=== PATIENT | male | born 1975 | race African-American/Black ===

== ENCOUNTER 2023-02-01 20:15 | Emergency (ER) | payer OTHER, SELFPAY ==
[2023-02-01 20:18] VITALS: BP 139/93; PULSE 74; RESP 16; TEMP 36.8; O2SAT 98
[2023-02-01 20:27] VITALS: PULSE 67
--- NOTE | 2023-02-01 20:39 | ECG_ITS ---
Measurements Intervals [place] Rate: 77 P: 65 AL: 165 QRS: 74 QRSD: 96 T: 77 QT: 389 QTc: 443 Interpretive Statements SINUS RHYTHM BORDERLINE T WAVE ABNORMALITY- ANTEROLAT/HIGH LAT LEADS BASELINE WANDER- I, II, III, AVL BORDERLINE ECG NO PREVIOUS ECG AVAILABLE FOR COMPARISON Electronically Signed On 02-02-2023 6:32:39 CDT by Lee Shelton D.O.
[2023-02-01 21:20] LABS: Basophils Percent Auto 0.4 % (0.2-1.2); Eosinophils Percent Auto 0.4 % (0-4.4); Hematocrit 43.1 % (42.0-52.0); Hemoglobin 13.8 g/dL (14.0-18.0); Immature Granulocyte Absolute 0.02 K/mm3 (0.00-0.031); Immature Granulocyte Percent A 0.4 % (0-0.5); Lymphocytes Absolute Auto 0.94 K/mm3 (0.9-3.2); Lymphocytes Percent Auto 16.9 % (18.3-44.2); Mean Corpuscular Hemoglobin 26.9 pg (26-34); Mean Platelet Volume 10.2 fl (7.4-10.4); Monocytes Absolute Auto 0.3 K/mm3 (0.1-0.6); Monocytes Percent Auto 6.1 % (2.6-8.5); Neutrophils Absolute Auto 4.2 K/mm3 (1.3-6.7); Neutrophils Percent Auto 75.8 % (45.5-73.1); Platelet Count Result 250 k/mm3 (150-375); Red Blood Count 5.13 M/mm3 (4.6-6.20); Red Cell Distribution Width 14.6 % (11.5-14.5); White Blood Count 5.6 K/mm3 (4.5-10.0)
--- NOTE | 2023-02-01 21:29 | ED.GENADULT ---
HPI - General Adult General Chief complaint: Seizure Stated complaint: seizure Time Seen by Provider: 02/01/23 20:47 History of Present Illness HPI narrative: Patient is a 47-year-old gentleman who presents the emergency department chief complaint of seizure. Patient reports he has prior history of seizure disorder and reports that he missed the doses of his medication today the patient states that he currently feels good and feels back to normal denies pain reports is no midline C-spine tenderness reports full range of motion in his neck patient states that he would like to go home and would like to call his girlfriend. Related Data Allergies Allergy/AdvReac Type Severity Reaction Status Date / Time No Known Allergies Allergy Verified 02/01/23 20:25 Review of Systems Review of Systems: A 10 system review of systems was completed on the patient and is negative except for what is stated in the HPI. Nursing and ancillary documentation was reviewed. PMFSH Comments Seizure disorder Exam Narrative: GENERAL: Well-appearing, well-nourished, and in no acute distress. HEAD: Normocephalic, atraumatic. EYES: PERRLA and EOMI. ENT: Nares clear, no rhinorrhea or epistaxis. Mucous membranes moist. NECK: Supple. No midline C-spine tenderness no pain with range of motion cleared by Nexus criteria CHEST: Clear to auscultation. No respiratory distress. HEART: Regular rate and rhythm. No murmur heard. Normal peripheral pulses. ABDOMEN: Soft, nontender, nondistended, normal active bowel sounds. EXTREMITIES: Normal range of motion. No edema. SKIN: Warm, dry, no rash. NEURO: No focal deficits. Alert and oriented x3. PSYCH: Normal mood and affect. Course Vital Signs Vital signs: Vital Signs Temperature 36.8 C 02/01/23 20:18 Pulse Rate 74 02/01/23 20:18 Respiratory Rate 16 02/01/23 20:18 Blood Pressure 139/93 H 02/01/23 20:18 Pulse Oximetry 98 02/01/23 20:18 Oxygen Delivery Room Air 02/01/23 20:18 Temperature 36.8 C 02/01/23 20:18 Pulse Rate 67 02/01/23 20:27 Respiratory Rate 16 02/01/23 20:18 Blood Pressure 139/93 H 02/01/23 20:18 Pulse Oximetry 98 02/01/23 20:18 Oxygen Delivery Room Air 02/01/23 20:18 Medical Decision Making MDM Narrative Medical decision making narrative: Differential diagnosis includes electrolyte abnormality, noncompliance, breakthrough seizure. We is unable to check Trileptal levels in the emergency department at this facility. The patient has had noncompliance with his medications patient was instructed to take his home medications when he gets home and the patient instructed to follow-up with his neurologist. Vital Signs Vital Signs: Vital Signs Temperature 36.8 C 02/01/23 20:18 Pulse Rate 74 02/01/23 20:18 Respiratory Rate 16 02/01/23 20:18 Blood Pressure 139/93 H 02/01/23 20:18 Pulse Oximetry 98 02/01/23 20:18 Oxygen Delivery Room Air 02/01/23 20:18 Temperature 36.8 C 02/01/23 20:18 Pulse Rate 67 02/01/23 20:27 Respiratory Rate 16 02/01/23 20:18 Blood Pressure 139/93 H 02/01/23 20:18 Pulse Oximetry 98 02/01/23 20:18 Oxygen Delivery Room Air 02/01/23 20:18 Lab Data 02/01/23 21:14 02/01/23 21:14 Labs: Lab Results 02/01/23 Range/Units 21:14 WBC 5.6 (4.5-10.0) K/mm3 RBC 5.13 (4.6-6.20) M/mm3 Hgb 13.8 L (14.0-18.0) g/dL Hct 43.1 (42.0-52.0) % MCV 84.0 (80-100) fl MCH 26.9 (26-34) pg MCHC 32.0 (32-36) g/dl RDW 14.6 H (11.5-14.5) % Plt Count 250 (150-375) k/mm3 MPV 10.2 (7.4-10.4) fl Immature Gran % (Auto) 0.4 (0-0.5) % Neut % (Auto) 75.8 H (45.5-73.1) % Lymph % (Auto) 16.9 L (18.3-44.2) % Noble % (Auto) 6.1 (2.6-8.5) % Eos % (Auto) 0.4 (0-4.4) % Baso % (Auto) 0.4 (0.2-1.2) % Lymph # (Auto) 0.94 (0.9-3.2) K/mm3 Noble # (Auto) 0.3 (0.1-0.6) K/mm3 Eos # (Auto) 0.0 (0-0.3) K/mm3 Baso # (Auto) 0.0 (0
[2023-02-01 21:33] LABS: Alanine Aminotransferase 20 U/L (6-50); Albumin Level 4.5 g/dL (3.5-5.1); Alkaline Phosphatase 72 U/L (38-126); Anion Gap 9 mmol/L (8-16); Aspartate Amino Transferase 25 U/L (17-59); Bilirubin,Total 0.5 mg/dL (0.2-1.3); Blood Urea Nitrogen 20 mg/dL (9-20); Calcium 9.3 mg/dL (8.4-10.2); Carbon Dioxide 27 mmol/L (22-30); Chloride 102 mmol/L (98-107); Estimated CRCL calculation 65 ml/min; Estimated Glomerular Filt Rate > 60; Glucose 106 mg/dL (65-110); Potassium 4.4 mmol/L (3.4-5.0); Sodium 138 mmol/L (137-145)
[2023-02-01 23:00] VITALS: BP 145/81; PULSE 74; RESP 16; O2SAT 98
== END 2023-02-01 23:10 | disposition home or self-care (01) ==
PROVIDERS: Emergency Provider Emergency Medicine
DX: G40.909 Epilepsy, unspecified, not intractable, without status epilepticus (principal); T42.76XA Underdosing of unspecified antiepileptic and sedative-hypnotic drugs, initial encounter; Z91.138 Patient's unintentional underdosing of medication regimen for other reason; R94.31 Abnormal electrocardiogram [ECG] [EKG]
CPT/HCPCS: 36415; 80053; 85025; 93005; 99283